=== PATIENT | male | born 1960 | race Caucasian/White ===

== ENCOUNTER → 2020-08-20 06:58 | Outpatient (CLI) | payer OTHER, SELFPAY ==
[2020-08-21 18:59] LABS: SARS-CoV-2 RNA PCR Negative
== END ==
PROVIDERS: PCP Internal Medicine; Visit Provider Internal Medicine
DX: Z20.822 Contact with and (suspected) exposure to COVID-19 (principal); R68.89 Other general symptoms and signs
CPT/HCPCS: C9803; U0003; U0005